=== PATIENT | female | born 1950 | race Caucasian/White ===

== ENCOUNTER 2017-08-08 11:24 | Emergency (ER) | payer BC ==
[~2017-08-08] VITALS: Ht 157.5 cm; Wt 70.3 kg
[2017-08-08] MEDS ORDERED: Synthroid112 MCG PO (11:39)
[2017-08-08] MEDS ORDERED: HYDSUL200 PO (11:39)
[2017-08-08] MEDS ORDERED: BUPR150ER PO (11:40)
[2017-08-08] MEDS ORDERED: CITA20 PO (11:40)
[2017-08-08] MEDS ORDERED: HYDCHL25 PO (11:40)
[2017-08-08] MEDS ORDERED: METTREX2.5 PO (11:40)
[2017-08-08] MEDS ORDERED: AZAT50 PO (11:41)
[2017-08-08] MEDS ORDERED: FOLI400 PO (11:41)
[2017-08-08] MEDS ORDERED: Crutch1 EACH MISC (12:11)
[2017-08-08] MEDS ORDERED: Percocet 5-3251 EACH PO (12:24)
[2017-08-09] MEDS ORDERED: IBUP800 PO (09:00)
[2017-08-09] MEDS ORDERED: Zofran Odt4 MG SL (09:00)
[2017-08-09] MEDS ORDERED: Percocet 10-321 EACH PO (09:00)
== END 2017-08-08 13:28 | disposition home or self-care (01) ==
LOC: ER 11:24
DX: S82.841A Displaced bimalleolar fracture of right lower leg, initial encounter for closed fracture (principal); Z79.899 Other long term (current) drug therapy; I10 Essential (primary) hypertension; E03.9 Hypothyroidism, unspecified; F32.9 Major depressive disorder, single episode, unspecified; W18.30XA Fall on same level, unspecified, initial encounter
CPT/HCPCS: 27810; 73610; 96374; 99152; 99284; J3010; J7030